=== PATIENT | female | born 1950 | race Caucasian/White ===

== ENCOUNTER 2020-06-05 13:43 | Emergency (ER) | payer OTHER, MEDICARE ==
[~2020-06-05] VITALS: Ht 162.6 cm; Wt 66.4 kg
[~2020-06-05 13:43] MED LIST: ASPI-612 PO; CALC-331 PO; CARV3.12 PO; CHOL100046 PO; ESTR0.6261 PO; FLAX100032 PO; GUAI120018 PO; LISI-640 PO; NIAC1TBM5 PO; VITE1000C PO
[2020-06-05 14:33] LABS: BASOPHILS # (AUTO) 0.1 X10'3 (0-0.2); BASOPHILS % (AUTO) 1.1 % (0-1); EOSINOPHILS # (AUTO) 0.3 X10'3 (0-0.9); EOSINOPHILS % (AUTO) 3.1 % (0-6); HEMATOCRIT 37.3 % (35.0-45.0); HEMOGLOBIN 12.6 g/dl (12.0-16.0); LYMPHOCYTES # (AUTO) 1.7 X10'3 (1.1-4.8); LYMPHOCYTES % (AUTO) 18.3 % (21-51); MEAN CORPUSCULAR HEMOGLOBIN 27.4 PG (27.0-31.0); MEAN CORPUSCULAR HGB CONC 33.9 g/dL (33.0-36.5); MEAN CORPUSCULAR VOLUME 80.9 FL (78-98); MEAN PLATELET VOLUME 8.1 FL (7.4-10.4); MONOCYTES # (AUTO) 0.8 X10'3 (0-0.9); MONOCYTES % (AUTO) 8.3 % (2-12); NEUTROPHILS # (AUTO) 6.3 X10'3 (1.8-7.7); NEUTROPHILS % (AUTO) 69.2 % (42-75); PLATELET COUNT 314 X10'3 (140-440); RED BLOOD COUNT 4.61 X10'6 (4.20-5.60); WHITE BLOOD COUNT 9.1 X10'3 (4.5-11.0)
[2020-06-05 14:48] LABS: ALANINE AMINOTRANSFERASE 35 U/L (12-78); ALBUMIN 4.3 G/DL (3.4-5.0); ALBUMIN/GLOBULIN RATIO 1.2 (1.1-1.5); ALKALINE PHOSPHATASE 102 IU/L (46-116); ANION GAP 10 (8-16); ASPARTATE AMINO TRANSFERASE 20 U/L (10-37); BILIRUBIN,TOTAL 0.5 MG/DL (0.1-1.0); BLOOD UREA NITROGEN 18 MG/DL (7-18); BUN/CREATININE RATIO 20.5 (6.6-38.0); CALCIUM 9.5 MG/DL (8.5-10.1); CHLORIDE 104 MMOL/L (99-107); CREATININE 0.88 MG/DL (0.40-0.90); GLUCOSE 100 MG/DL (70-104); POTASSIUM 3.5 MMOL/L (3.5-5.1); SODIUM 142 MMOL/L (135-145); TOTAL PROTEIN 7.9 G/DL (6.4-8.2); eGFR 64 ML/MIN
[2020-06-05 16:24] LABS: D-DIMER 0.39 MG/L FEU (0-0.50)
--- NOTE | 2020-06-05 17:00 | NUR ---
PROVIDER AWARE OF ELEVATED BP, NO MEDS ORDERED.
[2020-06-05 17:57] VITALS: BP 197/76
== END 2020-06-05 18:03 | disposition home or self-care (01) ==
LOC: ER 13:44
DX: R07.89 Other chest pain (principal); I51.81 Takotsubo syndrome; E78.00 Pure hypercholesterolemia, unspecified; I10 Essential (primary) hypertension; Z87.01 Personal history of pneumonia (recurrent); Z90.710 Acquired absence of both cervix and uterus; Z79.82 Long term (current) use of aspirin; Z79.899 Other long term (current) drug therapy
CPT/HCPCS: 36415; 71045; 80053; 84484; 85025; 85379; 93005; 99285

== ENCOUNTER 2021-02-28 16:22 | Emergency (ER) | payer OTHER, MEDICARE ==
[~2021-02-28] VITALS: Ht 160 cm; Wt 64.5 kg
[2021-02-28] MEDS ORDERED: metoprolol tartrate 50mg tablet PO ONE (17:05)
[2021-02-28 17:08] LABS: BASOPHILS # (AUTO) 0.1 X10'3 (0-0.2); EOSINOPHILS # (AUTO) 0.5 X10'3 (0-0.9); EOSINOPHILS % (AUTO) 4.5 % (0-6); HEMATOCRIT 38.7 % (35.0-45.0); HEMOGLOBIN 13.1 g/dl (12.0-16.0); LYMPHOCYTES # (AUTO) 2.6 X10'3 (1.1-4.8); MEAN CORPUSCULAR HGB CONC 33.9 g/dL (33.0-36.5); MEAN CORPUSCULAR VOLUME 82.6 FL (78-98); MEAN PLATELET VOLUME 7.7 FL (7.4-10.4); MONOCYTES % (AUTO) 10.2 % (2-12); NEUTROPHILS # (AUTO) 6.1 X10'3 (1.8-7.7); NEUTROPHILS % (AUTO) 59.3 % (42-75); PLATELET COUNT 283 X10'3 (140-440); RED BLOOD COUNT 4.68 X10'6 (4.20-5.60); RED CELL DISTRIBUTION WIDTH 14.1 % (11.5-14.5); WHITE BLOOD COUNT 10.2 X10'3 (4.5-11.0)
[2021-02-28 17:30] LABS: ALANINE AMINOTRANSFERASE 35 U/L (12-78); ALBUMIN 4.3 G/DL (3.4-5.0); ALBUMIN/GLOBULIN RATIO 1.2 (1.1-1.5); ALKALINE PHOSPHATASE 73 IU/L (46-116); ANION GAP 11 (8-16); ASPARTATE AMINO TRANSFERASE 19 U/L (10-37); BILIRUBIN,TOTAL 0.4 MG/DL (0.1-1.0); BLOOD UREA NITROGEN 25 MG/DL (7-18); BUN/CREATININE RATIO 31.3 (6.6-38.0); CALCIUM 9.4 MG/DL (8.5-10.1); CHLORIDE 106 MMOL/L (99-107); GLUCOSE 123 MG/DL (70-104); POTASSIUM 3.7 MMOL/L (3.5-5.1); SODIUM 145 MMOL/L (135-145); TOTAL CARBON DIOXIDE 28.2 MMOL/L (24-32); TOTAL PROTEIN 7.9 G/DL (6.4-8.2); eGFR 71 ML/MIN
[2021-02-28 17:39] LABS: MAGNESIUM 2.1 MG/DL (1.5-2.4)
[2021-02-28 18:00] LABS: D-DIMER 0.25 MG/L FEU (0-0.50)
[2021-02-28 19:51] VITALS: BP 173/67
== END 2021-02-28 19:54 | disposition home or self-care (01) ==
LOC: ER 16:23
DX: R07.89 Other chest pain (principal); Z20.822 Contact with and (suspected) exposure to COVID-19; M79.602 Pain in left arm; E78.00 Pure hypercholesterolemia, unspecified; I10 Essential (primary) hypertension; Z87.01 Personal history of pneumonia (recurrent); Z90.49 Acquired absence of other specified parts of digestive tract; Z90.710 Acquired absence of both cervix and uterus; Z79.82 Long term (current) use of aspirin; Z79.899 Other long term (current) drug therapy
CPT/HCPCS: 36415; 71045; 80053; 83735; 83880; 84484; 85025; 85379; 87635; 93005; 99285; C9803

== ENCOUNTER 2022-04-26 06:07 | Emergency (ER) | payer OTHER, MEDICARE ==
[~2022-04-26] VITALS: Ht 162.6 cm; Wt 60.0 kg
[2022-04-26 06:14] VITALS: BP 139/56
--- NOTE | 2022-04-26 09:20 | NUR ---
VASCULAR AT BEDSIDE
[2022-04-26 09:30] LABS: D-DIMER 0.51 MG/L FEU (0-0.50)
[2022-04-26 09:33] LABS: BASOPHILS # (AUTO) 0.1 X10'3 (0-0.2); BASOPHILS % (AUTO) 0.6 % (0-1); EOSINOPHILS # (AUTO) 0.9 X10'3 (0-0.9); EOSINOPHILS % (AUTO) 6.1 % (0-6); HEMATOCRIT 37.1 % (35.0-45.0); HEMOGLOBIN 12.5 g/dl (12.0-16.0); LYMPHOCYTES # (AUTO) 3.2 X10'3 (1.1-4.8); MEAN CORPUSCULAR HEMOGLOBIN 27.7 PG (27.0-31.0); MEAN CORPUSCULAR HGB CONC 33.8 g/dL (33.0-36.5); MEAN PLATELET VOLUME 7.4 FL (7.4-10.4); MONOCYTES # (AUTO) 1.4 X10'3 (0-0.9); MONOCYTES % (AUTO) 9.5 % (2-12); NEUTROPHILS # (AUTO) 8.9 X10'3 (1.8-7.7); NEUTROPHILS % (AUTO) 61.8 % (42-75); PLATELET COUNT 305 X10'3 (140-440); RED BLOOD COUNT 4.53 X10'6 (4.20-5.60); RED CELL DISTRIBUTION WIDTH 13.8 % (11.5-14.5); WHITE BLOOD COUNT 14.4 X10'3 (4.5-11.0)
[2022-04-26 09:41] LABS: ALANINE AMINOTRANSFERASE 23 U/L (12-78); ALBUMIN 3.9 G/DL (3.4-5.0); ALBUMIN/GLOBULIN RATIO 1.3 (1.1-1.5); ALKALINE PHOSPHATASE 61 IU/L (46-116); ASPARTATE AMINO TRANSFERASE 16 U/L (10-37); BILIRUBIN,TOTAL 0.5 MG/DL (0.1-1.0); BLOOD UREA NITROGEN 20 MG/DL (7-18); BUN/CREATININE RATIO 23.5 (6.6-38.0); CALCIUM 9.4 MG/DL (8.5-10.1); CHLORIDE 102 MMOL/L (99-107); CREATININE 0.85 MG/DL (0.40-0.90); GLUCOSE 111 MG/DL (70-104); POTASSIUM 3.3 MMOL/L (3.5-5.1); TOTAL CARBON DIOXIDE 27.4 MMOL/L (24-32); eGFR 66 ML/MIN
[2022-04-26 09:46] LABS: ANION GAP 11 (8-16); SODIUM 140 MMOL/L (135-145)
[2022-04-26] MEDS ORDERED: iohexol 350MG/ML 100ml bottle IV ONE (10:20)
--- NOTE | 2022-04-26 10:47 | NUR ---
PT RESTING COMFORTABLY. LIGHTS DIMMED AT PTS REQUEST
[2022-04-26] MEDS ORDERED: PRED10TA23 PO (12:06)
[2022-04-26] MEDS ORDERED: BUDE180A INH (12:06)
== END 2022-04-26 12:19 | disposition home or self-care (01) ==
LOC: ER 06:07
DX: R06.02 Shortness of breath (principal); L92.9 Granulomatous disorder of the skin and subcutaneous tissue, unspecified; J06.9 Acute upper respiratory infection, unspecified; E78.00 Pure hypercholesterolemia, unspecified; I10 Essential (primary) hypertension; Z90.49 Acquired absence of other specified parts of digestive tract; Z90.710 Acquired absence of both cervix and uterus
CPT/HCPCS: 36415; 71045; 71275; 80053; 83880; 84484; 85025; 85379; 93005; 93971; 99285; J3490; Q9967

== ENCOUNTER 2022-05-06 14:44 | Inpatient (IN) | payer OTHER, MEDICARE ==
[~2022-05-06] VITALS: Ht 160 cm; Wt 60.0 kg
[~2022-05-06 14:44] MED LIST changes: +BUDE180A INH; +PRED10TA23 PO
[2022-05-06 16:36] LABS: BASOPHILS # (AUTO) 0.1 X10'3 (0-0.2); BASOPHILS % (AUTO) 0.3 % (0-1); EOSINOPHILS # (AUTO) 0.2 X10'3 (0-0.9); EOSINOPHILS % (AUTO) 1.1 % (0-6); HEMATOCRIT 41.5 % (35.0-45.0); HEMOGLOBIN 13.5 g/dl (12.0-16.0); LYMPHOCYTES # (AUTO) 4.3 X10'3 (1.1-4.8); MEAN CORPUSCULAR HEMOGLOBIN 27.2 PG (27.0-31.0); MEAN CORPUSCULAR HGB CONC 32.6 g/dL (33.0-36.5); MEAN CORPUSCULAR VOLUME 83.2 FL (78-98); MEAN PLATELET VOLUME 7.8 FL (7.4-10.4); MONOCYTES # (AUTO) 1.8 X10'3 (0-0.9); MONOCYTES % (AUTO) 9.4 % (2-12); NEUTROPHILS % (AUTO) 67.2 % (42-75); PLATELET COUNT 396 X10'3 (140-440); RED BLOOD COUNT 4.98 X10'6 (4.20-5.60); RED CELL DISTRIBUTION WIDTH 14.5 % (11.5-14.5); WHITE BLOOD COUNT 19.4 X10'3 (4.5-11.0)
[2022-05-06 16:58] LABS: ALANINE AMINOTRANSFERASE 27 U/L (12-78); ALBUMIN 3.9 G/DL (3.4-5.0); ALBUMIN/GLOBULIN RATIO 1.4 (1.1-1.5); ALKALINE PHOSPHATASE 62 IU/L (46-116); ANION GAP 11 (8-16); ASPARTATE AMINO TRANSFERASE 21 U/L (10-37); BILIRUBIN,TOTAL 0.6 MG/DL (0.1-1.0); BLOOD UREA NITROGEN 41 MG/DL (7-18); BUN/CREATININE RATIO 34.5 (6.6-38.0); CALCIUM 9.7 MG/DL (8.5-10.1); CHLORIDE 98 MMOL/L (99-107); CREATININE 1.19 MG/DL (0.40-0.90); GLUCOSE 130 MG/DL (70-104); POTASSIUM 3.2 MMOL/L (3.5-5.1); SODIUM 135 MMOL/L (135-145); TOTAL CARBON DIOXIDE 26.5 MMOL/L (24-32); TOTAL PROTEIN 6.6 G/DL (6.4-8.2); eGFR 45 ML/MIN
--- NOTE | 2022-05-06 17:11 | NUR ---
Pt moved to ER rm 12 from fast track A.
[2022-05-06] MEDS ORDERED: aspirin 81mg tab.chew PO ONE (17:15)
[2022-05-06] MEDS ORDERED: heparin 10,000 units/1 ML INJ IV ONE ×2 (18:10→18:15)
[2022-05-06] MEDS ORDERED: potassium Cl 20 mEq SR tablet PO PRN (18:25)
[2022-05-06] MEDS ORDERED: potassium Cl 40MEQ/1/2NS 520ml 520 ML IV PRN (18:25)
[2022-05-06] MEDS ORDERED: magnesium 4gm in 100ml NS 100 ML IV PRN (18:25)
[2022-05-06] MEDS ORDERED: ondansetron/PF 4mg/2ml inj IV PRN (18:25)
[2022-05-06] MEDS ORDERED: acetaminophen 325mg tablet PO PRN (18:25)
[2022-05-06] MEDS ORDERED: magnesium Cl slow-release 64mg tablet PO PRN (18:25)
[2022-05-06] MEDS ORDERED: normal saline 1000ML IV soln IVB ONE (18:30)
[2022-05-06] MEDS: heparin 25,000 UNIT/250ml bag 250 ML IV PRN (19:20)
[2022-05-06] MEDS ORDERED: LORazepam 2 mg/ml vial IV ONE (19:35)
[2022-05-06] MEDS ORDERED: heparin 10,000 units/1 ML INJ IV PRN (19:35)
[2022-05-06] MEDS ORDERED: heparin, porcine 5000 units/ml vial SQ SCH (20:00)
[2022-05-06] MEDS: K and/or MAG REPLACEMENT MC SCH (20:00)
[2022-05-07 01:35] LABS: APTT 118 SECONDS (22-32)
--- NOTE | 2022-05-07 01:44 | NUR ---
0140 Dr MAYNARD notified PTT, heprin placed on hold for 2 hours and repeat PTT
[2022-05-07 04:07] LABS: BASOPHILS # (AUTO) 0.1 X10'3 (0-0.2); BASOPHILS % (AUTO) 0.5 % (0-1); EOSINOPHILS # (AUTO) 0.3 X10'3 (0-0.9); EOSINOPHILS % (AUTO) 2.4 % (0-6); HEMATOCRIT 38.2 % (35.0-45.0); HEMOGLOBIN 12.5 g/dl (12.0-16.0); LYMPHOCYTES # (AUTO) 5.1 X10'3 (1.1-4.8); LYMPHOCYTES % (AUTO) 35.7 % (21-51); MEAN CORPUSCULAR HEMOGLOBIN 27.1 PG (27.0-31.0); MEAN CORPUSCULAR HGB CONC 32.8 g/dL (33.0-36.5); MEAN CORPUSCULAR VOLUME 82.8 FL (78-98); MEAN PLATELET VOLUME 7.6 FL (7.4-10.4); MONOCYTES # (AUTO) 1.1 X10'3 (0-0.9); MONOCYTES % (AUTO) 7.6 % (2-12); NEUTROPHILS # (AUTO) 7.8 X10'3 (1.8-7.7); NEUTROPHILS % (AUTO) 53.8 % (42-75); PLATELET COUNT 297 X10'3 (140-440); RED BLOOD COUNT 4.62 X10'6 (4.20-5.60); RED CELL DISTRIBUTION WIDTH 14.6 % (11.5-14.5); WHITE BLOOD COUNT 14.4 X10'3 (4.5-11.0)
[2022-05-07 04:16] LABS: ALBUMIN 3.1 G/DL (3.4-5.0); ANION GAP 6 (8-16); BLOOD UREA NITROGEN 28 MG/DL (7-18); BUN/CREATININE RATIO 26.7 (6.6-38.0); CALCIUM 8.3 MG/DL (8.5-10.1); CHLORIDE 105 MMOL/L (99-107); CREATININE 1.05 MG/DL (0.40-0.90); GLUCOSE 90 MG/DL (70-104); MAGNESIUM 1.9 MG/DL (1.5-2.4); POTASSIUM 3.5 MMOL/L (3.5-5.1); SODIUM 137 MMOL/L (135-145); TOTAL CARBON DIOXIDE 25.9 MMOL/L (24-32); eGFR 52 ML/MIN
[2022-05-07 04:23] LABS: APTT 30 SECONDS (22-32)
[2022-05-07] MEDS ORDERED: iohexol 350MG/ML 100ml bottle IV ONE (06:32)
[2022-05-07] MEDS: K and/or MAG REPLACEMENT MC SCH ×2 (08:00→20:00)
[2022-05-07] MEDS: furosemide 20 MG/2 ML vial IV SCH ×2 (08:31→21:07)
[2022-05-07 08:38] LABS: APTT 29 SECONDS (22-32)
[2022-05-07 16:16] LABS: APTT 49 SECONDS (22-32)
--- NOTE | 2022-05-07 16:37 | NUR ---
q2h repsoitioning by nursing staff. pt easily redirectable this shift. pt remains incontinent of bowel and bladder. skin/hygiene care performed. bed alarm remains on and audible. will continue to monitor pt Addendum: 05/07/22 at 1639 by Mandi Babin RN incorrect pt please disregard
[2022-05-07 18:01] VITALS: BP 108/68
[2022-05-07] MEDS ORDERED: AMLO5TAB16 PO (18:34)
[2022-05-07] MEDS ORDERED: ASPI-612 PO (18:35)
[2022-05-07] MEDS ORDERED: RED YEAST RICE/COQ10 PO (18:36)
[2022-05-07] MEDS ORDERED: Melatonin 3mg tablet PO SCH (21:00)
[2022-05-07 22:00] VITALS: BP 106/58
[2022-05-08] VITALS (8 sets, daily range): BP systolic 70–146; BP diastolic 41–76
[2022-05-08] MEDS: heparin 25,000 UNIT/250ml bag 250 ML IV PRN (02:12)
[2022-05-08 07:22] LABS: BASOPHILS # (AUTO) 0.1 X10'3 (0-0.2); BASOPHILS % (AUTO) 0.4 % (0-1); EOSINOPHILS # (AUTO) 0.4 X10'3 (0-0.9); EOSINOPHILS % (AUTO) 3.6 % (0-6); HEMATOCRIT 37.3 % (35.0-45.0); HEMOGLOBIN 12.3 g/dl (12.0-16.0); LYMPHOCYTES # (AUTO) 3.9 X10'3 (1.1-4.8); LYMPHOCYTES % (AUTO) 31.7 % (21-51); MEAN CORPUSCULAR HEMOGLOBIN 27.3 PG (27.0-31.0); MEAN CORPUSCULAR VOLUME 82.8 FL (78-98); MEAN PLATELET VOLUME 7.8 FL (7.4-10.4); MONOCYTES # (AUTO) 1.1 X10'3 (0-0.9); MONOCYTES % (AUTO) 9.2 % (2-12); NEUTROPHILS # (AUTO) 6.8 X10'3 (1.8-7.7); NEUTROPHILS % (AUTO) 55.1 % (42-75); PLATELET COUNT 251 X10'3 (140-440); RED BLOOD COUNT 4.51 X10'6 (4.20-5.60); RED CELL DISTRIBUTION WIDTH 14.4 % (11.5-14.5); WHITE BLOOD COUNT 12.3 X10'3 (4.5-11.0)
[2022-05-08 07:53] LABS: ALBUMIN 3.3 G/DL (3.4-5.0); ANION GAP 8 (8-16); BLOOD UREA NITROGEN 23 MG/DL (7-18); BUN/CREATININE RATIO 21.7 (6.6-38.0); CALCIUM 8.3 MG/DL (8.5-10.1); CHLORIDE 100 MMOL/L (99-107); CREATININE 1.06 MG/DL (0.40-0.90); GLUCOSE 114 MG/DL (70-104); MAGNESIUM 1.8 MG/DL (1.5-2.4); SODIUM 135 MMOL/L (135-145); TOTAL CARBON DIOXIDE 26.7 MMOL/L (24-32); eGFR 51 ML/MIN
[2022-05-08 07:56] LABS: POTASSIUM 2.9 MMOL/L (3.5-5.1)
[2022-05-08] MEDS: K and/or MAG REPLACEMENT MC SCH ×2 (08:00→18:36)
[2022-05-08] MEDS: furosemide 20 MG/2 ML vial IV SCH (10:03)
[2022-05-08] MEDS: potassium Cl 20 mEq SR tablet PO PRN ×2 (10:10→16:48)
[2022-05-08] MEDS: metoprolol succinate 25mg (24-HOUR) SR. Tablet PO SCH (11:25)
--- NOTE | 2022-05-08 18:30 | NUR ---
Received report from Henry PRIDE.
[2022-05-08] MEDS ORDERED: Melatonin 3mg tablet PO PRN (21:00)
[2022-05-08] MEDS: temazepam 15mg capsule PO PRN (22:29)
[2022-05-09] VITALS (10 sets, daily range): BP systolic 77–152; BP diastolic 41–57
--- NOTE | 2022-05-09 06:40 | NUR ---
Report to Henry PRIDE.
[2022-05-09 06:56] LABS: BASOPHILS # (AUTO) 0.1 X10'3 (0-0.2); BASOPHILS % (AUTO) 0.7 % (0-1); EOSINOPHILS # (AUTO) 0.6 X10'3 (0-0.9); HEMATOCRIT 37.2 % (35.0-45.0); HEMOGLOBIN 12.3 g/dl (12.0-16.0); LYMPHOCYTES # (AUTO) 3.3 X10'3 (1.1-4.8); LYMPHOCYTES % (AUTO) 28.7 % (21-51); MEAN CORPUSCULAR HEMOGLOBIN 27.5 PG (27.0-31.0); MEAN CORPUSCULAR VOLUME 83.5 FL (78-98); MEAN PLATELET VOLUME 7.7 FL (7.4-10.4); MONOCYTES # (AUTO) 1.1 X10'3 (0-0.9); MONOCYTES % (AUTO) 9.2 % (2-12); NEUTROPHILS # (AUTO) 6.6 X10'3 (1.8-7.7); NEUTROPHILS % (AUTO) 56.4 % (42-75); PLATELET COUNT 274 X10'3 (140-440); RED BLOOD COUNT 4.46 X10'6 (4.20-5.60); RED CELL DISTRIBUTION WIDTH 14.7 % (11.5-14.5); WHITE BLOOD COUNT 11.6 X10'3 (4.5-11.0)
[2022-05-09 07:04] LABS: ALBUMIN 3.4 G/DL (3.4-5.0); ANION GAP 5 (8-16); BLOOD UREA NITROGEN 23 MG/DL (7-18); CALCIUM 8.9 MG/DL (8.5-10.1); CHLORIDE 98 MMOL/L (99-107); CREATININE 1.15 MG/DL (0.40-0.90); GLUCOSE 135 MG/DL (70-104); MAGNESIUM 1.7 MG/DL (1.5-2.4); POTASSIUM 3.5 MMOL/L (3.5-5.1); SODIUM 133 MMOL/L (135-145); TOTAL CARBON DIOXIDE 29.7 MMOL/L (24-32); eGFR 47 ML/MIN
[2022-05-09] MEDS: K and/or MAG REPLACEMENT MC SCH ×2 (08:00→19:20)
[2022-05-09] MEDS: metoprolol succinate 25mg (24-HOUR) SR. Tablet PO SCH ×2 (08:00→09:30)
[2022-05-09] MEDS: normal saline 1000ml 1,000 ML IV SCH ×2 (10:24→20:24)
[2022-05-09] MEDS: temazepam 15mg capsule PO PRN (22:12)
[2022-05-10] VITALS (10 sets, daily range): BP systolic 128–176; BP diastolic 41–57
[2022-05-10] MEDS: normal saline 1000ml 1,000 ML IV SCH ×3 (05:16→20:34)
[2022-05-10 06:36] LABS: BASOPHILS # (AUTO) 0.1 X10'3 (0-0.2); BASOPHILS % (AUTO) 0.6 % (0-1); EOSINOPHILS # (AUTO) 0.7 X10'3 (0-0.9); EOSINOPHILS % (AUTO) 5.5 % (0-6); HEMATOCRIT 36.8 % (35.0-45.0); HEMOGLOBIN 12.2 g/dl (12.0-16.0); LYMPHOCYTES # (AUTO) 3.1 X10'3 (1.1-4.8); LYMPHOCYTES % (AUTO) 25.6 % (21-51); MEAN CORPUSCULAR HEMOGLOBIN 27.6 PG (27.0-31.0); MEAN CORPUSCULAR VOLUME 83.7 FL (78-98); MEAN PLATELET VOLUME 7.8 FL (7.4-10.4); MONOCYTES # (AUTO) 1.1 X10'3 (0-0.9); MONOCYTES % (AUTO) 9.2 % (2-12); NEUTROPHILS # (AUTO) 7.1 X10'3 (1.8-7.7); NEUTROPHILS % (AUTO) 59.1 % (42-75); PLATELET COUNT 245 X10'3 (140-440); RED CELL DISTRIBUTION WIDTH 14.6 % (11.5-14.5); WHITE BLOOD COUNT 12.1 X10'3 (4.5-11.0)
[2022-05-10 06:40] LABS: ALBUMIN 3.4 G/DL (3.4-5.0); ANION GAP 6 (8-16); BLOOD UREA NITROGEN 20 MG/DL (7-18); BUN/CREATININE RATIO 24.1 (6.6-38.0); CALCIUM 8.6 MG/DL (8.5-10.1); CHLORIDE 103 MMOL/L (99-107); CREATININE 0.83 MG/DL (0.40-0.90); GLUCOSE 101 MG/DL (70-104); POTASSIUM 3.8 MMOL/L (3.5-5.1); SODIUM 137 MMOL/L (135-145); TOTAL CARBON DIOXIDE 27.6 MMOL/L (24-32); eGFR 68 ML/MIN
[2022-05-10] MEDS: K and/or MAG REPLACEMENT MC SCH ×2 (08:00→19:08)
[2022-05-10] MEDS: metoprolol succinate 25mg (24-HOUR) SR. Tablet PO SCH (08:58)
[2022-05-10] MEDS: temazepam 15mg capsule PO PRN (22:21)
[2022-05-11 02:43] VITALS: BP 140/63
[2022-05-11] MEDS: normal saline 1000ml 1,000 ML IV SCH ×3 (03:16→16:51)
[2022-05-11 06:12] LABS: ALBUMIN 3.1 G/DL (3.4-5.0); ANION GAP 6 (8-16); BLOOD UREA NITROGEN 10 MG/DL (7-18); BUN/CREATININE RATIO 14.3 (6.6-38.0); CALCIUM 8.3 MG/DL (8.5-10.1); CHLORIDE 108 MMOL/L (99-107); GLUCOSE 95 MG/DL (70-104); POTASSIUM 3.9 MMOL/L (3.5-5.1); SODIUM 139 MMOL/L (135-145); eGFR 82 ML/MIN
[2022-05-11 06:19] LABS: BASOPHILS # (AUTO) 0.1 X10'3 (0-0.2); BASOPHILS % (AUTO) 0.7 % (0-1); EOSINOPHILS # (AUTO) 0.6 X10'3 (0-0.9); EOSINOPHILS % (AUTO) 4.9 % (0-6); HEMATOCRIT 31.8 % (35.0-45.0); HEMOGLOBIN 10.3 g/dl (12.0-16.0); LYMPHOCYTES # (AUTO) 2.3 X10'3 (1.1-4.8); LYMPHOCYTES % (AUTO) 19.4 % (21-51); MEAN CORPUSCULAR HEMOGLOBIN 27.3 PG (27.0-31.0); MEAN CORPUSCULAR HGB CONC 32.5 g/dL (33.0-36.5); MEAN CORPUSCULAR VOLUME 84.1 FL (78-98); MEAN PLATELET VOLUME 7.8 FL (7.4-10.4); MONOCYTES # (AUTO) 0.8 X10'3 (0-0.9); MONOCYTES % (AUTO) 6.9 % (2-12); NEUTROPHILS % (AUTO) 68.1 % (42-75); PLATELET COUNT 185 X10'3 (140-440); RED BLOOD COUNT 3.79 X10'6 (4.20-5.60); RED CELL DISTRIBUTION WIDTH 14.9 % (11.5-14.5); WHITE BLOOD COUNT 11.8 X10'3 (4.5-11.0)
[2022-05-11 07:00] VITALS: BP 164/51
[2022-05-11 08:00] VITALS: BP 164/51
[2022-05-11] MEDS: K and/or MAG REPLACEMENT MC SCH (08:00)
[2022-05-11 08:02] VITALS: BP 169/56
[2022-05-11] MEDS: metoprolol succinate 25mg (24-HOUR) SR. Tablet PO SCH (09:12)
--- NOTE | 2022-05-11 10:04 | NUR ---
Initial: Pt admit DX type II NV, hypokalemia, and orthostatic hypotension per EMR. PO ~100% mostly heart healthy diet meeting needs. LBM 05/09 per EMR. No nutrition interventions at this time. Will continue to monitor. Rec: 1. continue heart healthy diet; liberalize to regular if PO regresses 2. routine bowel care 3. weekly wts Addendum: 05/11/22 at [address] Amended: Links added.
[2022-05-11] MEDS ORDERED: METO-395 PO (16:13)
--- NOTE | 2022-05-11 17:57 | NUR ---
"DR. AYALA, ARE YOU PLANING TO DISCHARGE PT KALYN, ROOM 3023 A, TODAY? THANK YOU AMARILYS, PCU"
[2022-05-11 18:00] VITALS: BP 148/73
--- NOTE | 2022-05-11 19:33 | NUR ---
wheeled patient to private vehicle with all belongings. son driving home. pt to get RX tonight on her way home.
== END 2022-05-11 19:33 | disposition home or self-care (01) | DRG 280 ==
LOC: ER 14:45 → ED HOLD 18:27 → EDBEDREQ 05-07 04:47 → PCU 3S 05-07 17:49
PROVIDERS: ADMIT Internal Medicine; ATTEND Internal Medicine
PROC: B32T1ZZ Computerized Tomography (CT Scan) of Left Pulmonary Artery using Low Osmolar Contrast (ICD-10-PCS; principal; 2022-05-07)
PROC: B3201ZZ Computerized Tomography (CT Scan) of Thoracic Aorta using Low Osmolar Contrast (ICD-10-PCS; 2022-05-07)
PROC: B32S1ZZ Computerized Tomography (CT Scan) of Right Pulmonary Artery using Low Osmolar Contrast (ICD-10-PCS; 2022-05-07)
DX: I11.0 Hypertensive heart disease with heart failure (principal); I21.A1 Myocardial infarction type 2; I50.33 Acute on chronic diastolic (congestive) heart failure; E87.6 Hypokalemia; D72.829 Elevated white blood cell count, unspecified; I42.2 Other hypertrophic cardiomyopathy; I95.1 Orthostatic hypotension; F41.9 Anxiety disorder, unspecified; E78.00 Pure hypercholesterolemia, unspecified; F42.9 Obsessive-compulsive disorder, unspecified; F90.9 Attention-deficit hyperactivity disorder, unspecified type; I34.1 Nonrheumatic mitral (valve) prolapse; Z90.710 Acquired absence of both cervix and uterus; Z98.82 Breast implant status; Z79.899 Other long term (current) drug therapy; Z79.82 Long term (current) use of aspirin
CPT/HCPCS: 36415; 71045; 71275; 80048; 80053; 83735; 83880; 84145; 84443; 84484; 85025; 85730; 86140; 87081; 93005; 93308; 99285; G0378; J1644; J1940; J2060; J3490; J7030; Q9967

== ENCOUNTER 2022-05-14 00:41 | Emergency (ER) | payer OTHER, MEDICARE ==
[~2022-05-14] VITALS: Ht 160 cm; Wt 61.3 kg
[~2022-05-14 00:41] MED LIST changes: -BUDE180A INH; -CALC-331 PO; -CARV3.12 PO; -CHOL100046 PO; -ESTR0.6261 PO; -FLAX100032 PO; -GUAI120018 PO; -LISI-640 PO; +METO-395 PO; -NIAC1TBM5 PO; -PRED10TA23 PO; +RED YEAST RICE/COQ10 PO; -VITE1000C PO
[2022-05-14] MEDS ORDERED: normal saline 1000ML IV soln IVB ONE (01:25)
[2022-05-14 01:28] LABS: BASOPHILS # (AUTO) 0.1 X10'3 (0-0.2); BASOPHILS % (AUTO) 0.8 % (0-1); EOSINOPHILS # (AUTO) 0.6 X10'3 (0-0.9); EOSINOPHILS % (AUTO) 6.8 % (0-6); HEMATOCRIT 30.3 % (35.0-45.0); HEMOGLOBIN 10.4 g/dl (12.0-16.0); LYMPHOCYTES # (AUTO) 2.3 X10'3 (1.1-4.8); MEAN CORPUSCULAR HEMOGLOBIN 28.3 PG (27.0-31.0); MEAN CORPUSCULAR HGB CONC 34.2 g/dL (33.0-36.5); MEAN CORPUSCULAR VOLUME 82.9 FL (78-98); MEAN PLATELET VOLUME 8.3 FL (7.4-10.4); MONOCYTES # (AUTO) 0.9 X10'3 (0-0.9); MONOCYTES % (AUTO) 10.6 % (2-12); NEUTROPHILS % (AUTO) 55.8 % (42-75); PLATELET COUNT 188 X10'3 (140-440); RED BLOOD COUNT 3.65 X10'6 (4.20-5.60); RED CELL DISTRIBUTION WIDTH 15.1 % (11.5-14.5); WHITE BLOOD COUNT 8.9 X10'3 (4.5-11.0)
[2022-05-14 01:45] VITALS: BP 154/71
[2022-05-14 01:45] LABS: ALANINE AMINOTRANSFERASE 85 U/L (12-78); ALBUMIN 3.4 G/DL (3.4-5.0); ALBUMIN/GLOBULIN RATIO 1.2 (1.1-1.5); ALKALINE PHOSPHATASE 65 IU/L (46-116); ANION GAP 10 (8-16); ASPARTATE AMINO TRANSFERASE 49 U/L (10-37); BILIRUBIN,TOTAL 0.4 MG/DL (0.1-1.0); BLOOD UREA NITROGEN 20 MG/DL (7-18); BUN/CREATININE RATIO 22.2 (6.6-38.0); CALCIUM 8.8 MG/DL (8.5-10.1); CHLORIDE 105 MMOL/L (99-107); GLUCOSE 134 MG/DL (70-104); POTASSIUM 3.4 MMOL/L (3.5-5.1); SODIUM 139 MMOL/L (135-145); TOTAL CARBON DIOXIDE 23.9 MMOL/L (24-32); TOTAL PROTEIN 6.3 G/DL (6.4-8.2); eGFR 62 ML/MIN
== END 2022-05-14 02:30 | disposition home or self-care (01) ==
LOC: ER 00:43
DX: R06.00 Dyspnea, unspecified (principal); E86.0 Dehydration; E78.00 Pure hypercholesterolemia, unspecified; I10 Essential (primary) hypertension; Z90.49 Acquired absence of other specified parts of digestive tract; Z90.710 Acquired absence of both cervix and uterus
CPT/HCPCS: 36415; 71045; 80053; 83735; 83880; 84484; 85025; 93005; 99285; J7030; 99284

== ENCOUNTER 2024-10-14 03:59 | Emergency (ER) | payer OTHER, MEDICARE ==
[~2024-10-14] VITALS: Ht 160 cm; Wt 67.4 kg
--- NOTE | 2024-10-14 04:13 | Physician Documentation ---
History of Present Illness ~ Stated Complaint: CHEST PAIN Time Seen by MD: 04:08 Primary Medical Doctor: [facility], Dr. pierre HPI Patient presents to the emergency room with an unusual feeling in the right side of her chest described as a pressure-like feeling. This has been going on over the past month when she wakes up in the middle of the night. She also endorses dry tongue and mouth when this occurs. Symptoms resolved by morning. Tonight she took her blood pressure during the dry mouth right-sided chest discomfort episode and saw that it was 190 systolic and given overall symptoms she wanted to be checked out. Patient does have a hair cutter, Dr. Johnston. History of takotsubo Medication Reconciliation Allergies: Coded Allergies: No Known Allergies (Unverified , 05/14/22) Scheduled Aspirin (Aspir 81), 1 TAB PO DAILY, (Reported) Metoprolol Succinate (Metoprolol Succinate), 50 MG PO DAILY [Red Yeast Rice/Coq10], 1 TAB PO DAILY, (Reported) Past Medical History Past Medical History: *CARDIOVASCULAR*, High Cholesterol, Hypertension, Pneumonia, *PSYCH*, Anxiety Past Surgical History: cholecystectomy, hysterectomy Alcohol Use: None Drug Use: none Lives with: Spouse Lives In: Home Occupation: employed Review of Systems ROS All review of systems negative except as per HPI Physical Exam Physical Exam General: Patient is awake, alert, oriented x4 in no acute distress and well appearing.~ Head: Normocephalic and atraumatic. Eyes: Conjunctival normal. EOMI. PERRL. ENT: Mucous membranes moist. Neck: Supple, trachea is midline. Chest: Clear to auscultation bilaterally without rales, rhonchi, or wheezes. There is no accessory muscle use or retractions. Cardiac: RRR without murmurs, gallops, or rubs. Abd: Soft, nondistended, nontender, with normoactive bowel sounds. No guarding, rebound, or rigidity. Extremities: Normal strength. Normal range of motion. No deformities or edema. No calf tenderness to palpation Progress Results/Orders Results/Orders Orders - SIMBA OLVERA MD Chest,Single View (10/14/24 04:30) Saline Lock (10/14/24 04:24) Monitor (10/14/24 04:24) Oxygen (10/14/24 04:24) Hs Troponin I W Calculations (10/14/24 07:24) Completed Orders - SIMBA OLVERA MD Cbc/Diff (10/14/24 04:24) MG (10/14/24 04:24) Electrocardiogram (10/14/24 04:24) Chest,Single View (10/14/24 04:30) BMP (10/14/24 04:24) Hs Troponin I W Calculations (10/14/24 04:24) Hs Troponin I W Calculations (10/14/24 06:24) Potassium Cl Sr Tablet (K-Dur Tablet) (10/14/24 05:48) Vital Signs 10/14/24 10/14/24 10/14/24 10/14/24 04:07 04:54 06:13 06:27 Temp 97.6 97.6 Pulse 66 65 57 Resp 14 14 18 B/P (MAP) 206/73 184/69 (107) 183/63 (103) Pulse Ox 100 99 98 O2 Flow Rate 0 0 0 10/14/24 10/14/24 06:27 08:25 Pulse 65 Resp 18 18 B/P (MAP) 143/60 (87) Pulse Ox 99 O2 Flow Rate 0 Laboratory Tests Test 10/14/24 04:35 10/14/24 07:06 White Blood Count 9.4 Red Blood Count 4.58 Hemoglobin 12.6 Hematocrit 37.6 Mean Corpuscular Volume 82.2 Mean Corpuscular Hemoglobin 27.5 Mean Corpuscular Hemoglobin Concent 33.5 Red Cell Distribution Width 14.3 Platelet Count 277 Mean Platelet Volume 7.7 Neutrophils (%) (Auto) 61.0 Lymphocytes (%) (Auto) 26.6 Monocytes (%) (Auto) 8.7 Eosinophils (%) (Auto) 2.9 Basophils (%) (Auto) 0.8 Neutrophils # (Auto) 5.7 Lymphocytes # (Auto) 2.5 Monocytes # (Auto) 0.8 Eosinophils # (Auto) 0.3 Basophils # (Auto) 0.1 CBC Comment Sodium Level 140 Potassium Level 3.4 L Chloride Level 102 Carbon Dioxide Level 27.4 Anion Gap 11 Blood Urea Nitrogen 20 H Creatinine 0.95 H Estimated GFR/1.73 m2 58 BUN/Creatinine Ratio 21.1 H Glucose Level 104 Calcium Level 9.2 Magnesium Level 2.0 Troponin I High Sensitivity 32 28 Albumin 3.9 Chemistry Comments Troponin I High Sens Percent Delta 12 Troponin I Hi Sens Absolute Change -4 Medical Decision Making Findings Patient presented to the emergency room with vague right-sided chest pain and tongue dryness upon wakening in the middle of the night as well as elevated blood pressures. Differentials include but are not limited to hypertensive emergency, ACS, pulmonary embolism, pneumothorax, pneumonia therefore emergent labs and imaging indicated. Chest x-ray is reassuring. Symptoms are inconsistent with pulmonary embolism given the waxing and waning symptoms. Patient's blood pressure is improving. She is not suffering from hypertensive emergency. The need to follow up with her hair cutter discussed. Heart score of three Departure Disposition: HOME / SELF CARE / HOMELESS Impression: Primary Impression: Chest pain Additional Impression: Uncontrolled hypertension Condition: Stable Discharge Instructions: Chest Wall Pain, Hypertension, Adult, [id number] Referrals: NO PRIMARY CARE PROVIDER (PCP) Signature Scribe Signature: No scribe Attestation: The note accurately reflects work and decisions made by me.Simba Olvera MD 10/14/24 06:03 SIMBA OLVERA MD Oct 14, 2024 04:13
[2024-10-14 04:44] LABS: BASOPHILS # (AUTO) 0.1 X10'3 (0-0.2); BASOPHILS % (AUTO) 0.8 % (0-1); EOSINOPHILS # (AUTO) 0.3 X10'3 (0-0.9); EOSINOPHILS % (AUTO) 2.9 % (0-6); HEMATOCRIT 37.6 % (35.0-45.0); HEMOGLOBIN 12.6 g/dl (12.0-16.0); LYMPHOCYTES # (AUTO) 2.5 X10'3 (1.1-4.8); LYMPHOCYTES % (AUTO) 26.6 % (21-51); MEAN CORPUSCULAR HEMOGLOBIN 27.5 PG (27.0-31.0); MEAN CORPUSCULAR HGB CONC 33.5 g/dL (33.0-36.5); MEAN CORPUSCULAR VOLUME 82.2 FL (78-98); MEAN PLATELET VOLUME 7.7 FL (7.4-10.4); MONOCYTES # (AUTO) 0.8 X10'3 (0-0.9); MONOCYTES % (AUTO) 8.7 % (2-12); NEUTROPHILS # (AUTO) 5.7 X10'3 (1.8-7.7); PLATELET COUNT 277 X10'3 (140-440); RED BLOOD COUNT 4.58 X10'6 (4.20-5.60); RED CELL DISTRIBUTION WIDTH 14.3 % (11.5-14.5); WHITE BLOOD COUNT 9.4 X10'3 (4.5-11.0)
[2024-10-14 04:56] LABS: ALBUMIN 3.9 G/DL (3.4-5.0); ANION GAP 11 (8-16); BLOOD UREA NITROGEN 20 MG/DL (7-18); BUN/CREATININE RATIO 21.1 (10.0-20.0); CALCIUM 9.2 MG/DL (8.5-10.1); CHLORIDE 102 MMOL/L (99-107); CREATININE 0.95 MG/DL (0.40-0.90); GLUCOSE 104 MG/DL (70-104); POTASSIUM 3.4 MMOL/L (3.5-5.1); SODIUM 140 MMOL/L (135-145); TOTAL CARBON DIOXIDE 27.4 MMOL/L (24-32); eCRCL 44 ML/MIN; eGFR 58 ML/MIN
--- NOTE | 2024-10-14 05:01 | RADIOLOGY REPORT ---
CHEST RADIOGRAPH Indication: CP Technique: Single frontal view of the chest was obtained COMPARISON: CHEST,SINGLE VIEW on DOS: 05/06/22 FINDINGS: Lines and Tubes: None Lungs: Clear Pleura: No effusion. No pneumothorax. Cardiomediastinal contours: Unremarkable Bones: Unremarkable IMPRESSION: No acute disease.
--- NOTE | 2024-10-14 05:15 | ELECTROCARDIOGRAPH REPORT ---
[facility] Test Date: 2024-10-14 Test Time: 04:08:09 Pat Name: MARVIN MCCAIN Department: EMERGENCY ROOM Room: Gender: F Security Checker: MAREN : 1950 Requested By: ADI OLVERA Order Number: [id number] Reading MD: Measurements Intervals [place] Rate: 65 P: 50 GA: 180 QRS: -12 QRSD: 95 T: 52 QT: 398 QTc: 414 Interpretive Statements Sinus rhythm Anterior infarct, old Please click the below link to view image of tracing.
[2024-10-14] MEDS: potassium Cl 20 mEq SR tablet PO STA (06:11)
[2024-10-14 06:13] VITALS: TEMP 97.6
[2024-10-14 08:25] VITALS: BP 143/60; PULSE 65; RESP 18; O2SAT 99
== END 2024-10-14 08:36 | disposition home or self-care (01) ==
LOC: ER 03:59
DX: R07.9 Chest pain, unspecified (principal); I10 Essential (primary) hypertension; E78.00 Pure hypercholesterolemia, unspecified; F41.9 Anxiety disorder, unspecified; Z90.49 Acquired absence of other specified parts of digestive tract; Z90.710 Acquired absence of both cervix and uterus; Z79.82 Long term (current) use of aspirin
CPT/HCPCS: 36415; 71045; 80048; 83735; 84484; 85025; 93005; 99285

== ENCOUNTER 2024-10-28 07:17 | Emergency (ER) | payer OTHER, MEDICARE ==
[~2024-10-28] VITALS: Ht 160 cm; Wt 67.0 kg
[2024-10-28 07:19] VITALS: BP 174/66; PULSE 71; TEMP 97.8; O2SAT 100
--- NOTE | 2024-10-28 07:29 | Physician Documentation ---
History of Present Illness ~ Chief Complaint: Foot pain Stated Complaint: FOOT PAIN Time Seen by MD: 07:27 Primary Medical Doctor: DR. DUARTE HPI This is a very pleasant 73-year-old female with a recent history of foot fracture, followed by Dr. Reyna of [facility], presents for evaluation of three days of right foot pain after she accidentally misstepped slammed her foot into the ground. Worse with any ambulation, has difficulty bearing weight, Tylenol is not helping. Feels similar to prior fracture of the foot. Denies any other injury. No concern for tobacco, alcohol or illicit substances use Tetanus witin 5 years: No Medication Reconciliation Allergies: Coded Allergies: No Known Allergies (Unverified , 10/28/24) Scheduled Aspirin (Aspir 81), 1 TAB PO DAILY, (Reported) Metoprolol Succinate (Metoprolol Succinate), 50 MG PO DAILY [Red Yeast Rice/Coq10], 1 TAB PO DAILY, (Reported) Past Medical History Past Medical History: *CARDIOVASCULAR*, High Cholesterol, Hypertension, Pneumonia, *PSYCH*, Anxiety Past Surgical History: cholecystectomy, hysterectomy Alcohol Use: None Drug Use: none Lives with: Spouse Lives In: Home Occupation: employed Review of Systems ROS 10 point review of systems was performed and unless noted above in HPI is negative for acute process/complaint. Physical Exam Vital Signs: Temperature: 97.8, Source: Temporal, Heart Rate: 71, Respiratory Rate: 16, BP: 174/66, Pulse Oximetry: 100, Weight: 67.050 Physical Exam Physical examination: GENERAL: Awake, alert, oriented, GCS 15, no apparent distress, non-toxic appearing, answers questions, follows commands appropriately. HEENT: Atraumatic, normocephalic, pupils equal, extraocular muscles intact Active gross movements, sclerae anicteric, mucus membranes moist, no stridor. NECK: Midline, no JVD CARDIOVASCULAR: Good skin perfusion without evidence of pallor, mottling. PULMONARY: Nonlabored, symmetric chest rise, no audible wheezing, no accessory muscle use, no respiratory distress, speaking in full sentences. GASTROINTESTINAL: Not distended. NEUROLOGIC: Lucid with normal mental status. Normal facial symmetry. Moves all extremities symmetrically and with purpose. No truncal ataxia. Speech is fluid without evidence of dysarthria or aphasia, no focal deficits appreciated. EXTREMITIES: Acute deformities Skin: warm, dry PSYCHIATRIC: Normal affect, normal insight, normal concentration. Focused exam: [] Progress Results/Orders Results/Orders Orders - EMILY LUTHER DO Foot, Complete (3vw Min) (10/28/24 07:25) Completed Orders - EMILY LUTHER DO Foot, Complete (3vw Min) (10/28/24 07:25) Hydrocodone/Apap 5/325mg Tab ([place] 5/32 (10/28/24 07:30) Medications Received in ER Medications (Trade) Dose Ordered Sig/Giovana Route PRN Reason Start Time Stop Time Status Last Admin Dose Admin ([place] 5/325mg tablet) 1 tab ONCE ONCE PO 10/28/24 07:30 10/28/24 07:31 DC 10/28/24 07:53 1 TAB Vital Signs 10/28/24 10/28/24 07:19 07:53 Temp 97.8 Pulse 71 Resp 16 16 B/P (MAP) 174/66 Pulse Ox 100 Medical Decision Making Findings Facility Status: ED Holds, [facility] process The plan was discussed with the patient, who demonstrates clear understanding of the plan and is in agreement with the plan unless otherwise noted in the chart. All questions have been answered, all concerns were addressed unless otherwise documented. I was available throughout their ED stay for frequent reassessment and questions. Differential Diagnoses (considered and possible or likely): [Foot contusion, foot fracture, foot dislocation, ankle fracture] ??Differential Diagnoses (considered and unlikely, not requiring evaluation currently): No evidence of neurovascular injury] MDM Data Please see [facility] for the following: Independent Historians and external Records Review. Historian: [Patient] Independent Historians: ?[Record review] Medication Management: [Reviewed medication list] Social History and determinants: [Reviewed] Please see the body of the note for the following: Any independent interpretations of ECG, imaging studies. All vitals signs/haemodynamics, ordered tests were independently reviewed and interpreted by myself. Nursing triage complaint and vitals reviewed, additional nursing notes were reviewed as available and I agree unless otherwise noted or documented in contradiction in the chart Vital Signs: Independently reviewed Labs: Independently interpreted Imaging: Independently interpreted Old Medical Records: Independently reviewed, see [facility] for relevant summary and information Pulse Oximetry: [100%] interpreted as [normal on room air] by me Additionally notably showing: [Hemodynamically stable. X-ray shows no fracture.] Tests considered but not ordered include: [Hematologic workup has been considered but does not appear to be necessary given mechanical nature of the injury.] Social Determinants of Health Impact: Patient was evaluated in [facility], or [facility] [place] access to healthcare due to below par ratio of patient to medical providers. [] Comorbid Conditions Impacting Present Evaluation and Care/Treatment: [History of foot fracture] Management Discussions with other Healthcare Providers: [None] Treatment and Disposition Medication Management (Given or considered): [Pain management]. See EMR for details Consideration for Hospitalization/Escalation/Deescalation of Care: Admission for observation has been considered, [however the patient is able to tolerate p.o., their symptoms are controlled, they are able to rely on oral medications, and their chief complaint/diagnosis can be managed on outpatient basis.] ?ED Course:?[No clinical deterioration. Can follow-up outpatient with the Orthopedic surgery. May need MRI] ?Shared decision making:?[Patient is hemodynamically stable for discharge home with follow with their primary care provider. [ ] Specific and cautious return precautions provided and discussed with full understanding. Any incidental findings were also discussed and follow up recommendations given. [] All questions answered. Patient/family were able to verbalize back return precautions. Patient/family agree to plan. Copies of imaging and laboratory studies were provided.] Code status:?FULL Please see the full Electronic Medical Record for full details of nursing documentation, medications list, other records of complete past medical history and conditions, vital signs, laboratory studies, and any radiologic study interpretations by radiologists. Portions of this note were completed using Prized dictation software and as a result there may exist minor errors in spelling. I have reviewed elements of past family and social history and agree as included in note. Departure Disposition: 01 HOME / SELF CARE / HOMELESS Impression: Primary Impression: Right foot pain Condition: Improved Discharge Instructions: Foot Pain Additional Instructions: There is no clear explanation for your pain today, however there is no evidence of fracture on the x-ray. If your pain persists, you may need to follow-up with the your primary care provider and obtain an MRI or follow-up with the Orthopedic hearing specialist. Referrals: NO PRIMARY CARE PROVIDER (PCP) Education Educated: Patient Educated regarding: diagnosis, treatment, prognosis, need for follow up Signature Scribe Signature: No scribe Attestation: This note accurately reflects clinical decisions, work performed by myself, DO ASHKAN Arias NICHOLAS M DO Oct 28, 2024 07:29
[2024-10-28 07:53] VITALS: RESP 16
[2024-10-28] MEDS: HYDROcodone/acetaminophen 5mg/325mg tablet PO ONE (07:53)
--- NOTE | 2024-10-28 07:59 | RADIOLOGY REPORT ---
EXAM: DI FOOT, COMPLETE (3VW MIN) HISTORY: FOOT PAIN right COMPARISON: None TECHNIQUE: DI FOOT, COMPLETE (3VW MIN) FINDINGS: BONES: No acute fracture or dislocation. Joint spaces are maintained. SOFT TISSUES: The overlying soft tissues are within normal limits. IMPRESSION: No acute osseous abnormality in the right foot.
== END 2024-10-28 08:46 | disposition home or self-care (01) ==
LOC: ER 07:17
DX: M79.671 Pain in right foot (principal); E78.00 Pure hypercholesterolemia, unspecified; F41.9 Anxiety disorder, unspecified; I10 Essential (primary) hypertension; Z90.49 Acquired absence of other specified parts of digestive tract; Z90.710 Acquired absence of both cervix and uterus; Z79.82 Long term (current) use of aspirin; Z79.899 Other long term (current) drug therapy
CPT/HCPCS: 73630; 99283

== ENCOUNTER 2025-03-14 23:17 | Inpatient (IN) | payer OTHER, MEDICARE ==
[~2025-03-14] VITALS: Ht 160 cm; Wt 67.7 kg
--- NOTE | 2025-03-14 23:32 | ELECTROCARDIOGRAPH REPORT ---
[facility] Test Date: 2025-03-14 Test Time: 23:26:05 Pat Name: MARVIN MCCAIN Department: EMERGENCY ROOM Room: [place] [address] Gender: F Roll Operator: : 1950 Requested By: EMILY LUTHER Order Number: [id number] Reading MD: Dr. Obed Dejesus Measurements Intervals [place] Rate: 66 P: 72 DE: 189 QRS: 32 QRSD: 90 T: 36 QT: 398 QTc: 417 Interpretive Statements Sinus rhythm Multiple ventricular premature complexes Anterior infarct, old Minimal ST depression, inferior leads Electronically Signed On 03-16-2025 9:40:[address] Obed Dejesus Please click the below link to view image of tracing.
[2025-03-14 23:38] LABS: MEAN PLATELET VOLUME 7.9 FL (7.4-10.4); RED CELL DISTRIBUTION WIDTH 13.9 % (11.5-14.5)
--- NOTE | 2025-03-14 23:49 | RADIOLOGY REPORT ---
CHEST RADIOGRAPH Indication: CP Technique: Single frontal view of the chest was obtained COMPARISON: DI CHEST,SINGLE VIEW on DOS: 10/14/24, CHEST,SINGLE VIEW on DOS: 05/14/22, CHEST,SINGLE VIEW on DOS: 05/06/22, CHEST,SINGLE VIEW on DOS: 04/26/22, CHEST,SINGLE VIEW on DOS: 02/28/21 FINDINGS: Lines and Tubes: None Lungs: Clear Pleura: No effusion. No pneumothorax. Cardiomediastinal contours: Unremarkable Bones: Unremarkable IMPRESSION: 1. No acute disease.
[2025-03-14 23:51] LABS: CREATININE 0.67 MG/DL (0.40-0.90); TOTAL CARBON DIOXIDE 27.9 MMOL/L (24-32); eCRCL 61 ML/MIN; eGFR 86 ML/MIN
[2025-03-14 23:58] LABS: PRO BRAIN NATRIURETIC PEPTIDE 31 PG/ML (0-125)
[2025-03-15] VITALS (17 sets, daily range): BP systolic 129–194; BP diastolic 48–76; PULSE 57–88; RESP 10–19; TEMP 96.8–97.9; O2SAT 96–100
--- NOTE | 2025-03-15 00:33 | Physician Documentation ---
History of Present Illness General Chief Complaint: Chest Pain Stated Complaint: CHEST PAIN Time Seen by MD: 23:38 Primary Medical Doctor: DR. DUARTE Mode of Arrival: POV History of Present Illness Initial Comments This is a 74-year-old female who presents for evaluation of substernal and right-sided chest pain radiating to her back that has been present for a month. It is constant. It is not affected by eating, drinking, exercise. It isn't accompanied by shortness a breath. She attempted fixt-kzl-zihqvce medications to treat it without any success. She had contacted Dr. Johnston's office, however they are not able to see her in the time of the manner.did undergo some sort of CT scan recently but it is not a stress test. It has been six years since she has had catheterization. She has not ever had a stress test. And she does not recall last time she had an echo. The pain has been getting gradually worse over the last month. It is now keeping her from sleep. Denies any fever or chills. Was not able to fall asleep so decided to come and get checked out. Denies use of tobacco, alcohol or illicit substances Medication Reconciliation Allergies: Coded Allergies: No Known Allergies (Unverified , 03/14/25) Scheduled Amlodipine Besylate (Amlodipine Besylate), 1 TAB PO DAILY, (Reported) Aspirin (Aspir 81), 1 TAB PO DAILY, (Reported) Losartan/Hydrochlorothiazide (Losartan-Hctz 100-12.5 Mg Tab), 1 TAB PO DAILY, (Reported) [place]-3/Dha/Epa/Fish Oil (Fish Oil 1,000 Mg Ec Softgel), 1 CAP PO DAILY, (Reported) Discontinued Medications Metoprolol Succinate (Metoprolol Succinate), 50 MG PO DAILY Discontinued Reason: Other [Red Yeast Rice/Coq10], 1 TAB PO DAILY, (Reported) Discontinued Reason: Other Past Medical History Past Medical History: *CARDIOVASCULAR*, High Cholesterol, Hypertension, Pneum onia, *PSYCH*, Anxiety Past Surgical History: cholecystectomy, hysterectomy Smoking: Non-Smoker Alcohol Use: None Drug Use: none Lives with: Spouse Lives In: Home Occupation: employed Review of Systems ROS 10 point review of systems was performed and unless noted above in HPI is negative for acute process/complaint. Physical Exam Physical Exam Vital Signs: Temperature: 97.8, Source: Temporal, Heart Rate: 76, Respiratory Rate: 16, BP: 211/69, Pulse Oximetry: 98, Weight: 67.700 Physical Exam GENERAL: Awake, alert, oriented, GCS 15, no apparent distress, non-toxic appearing, answers questions, follows commands appropriately. Examined in bed 2. HEENT: Atraumatic, normocephalic, pupils equal, extraocular muscles intact, sclerae anicteric, mucus membranes moist, oropharynx is clear, no stridor. NECK: supple, full active range of motion, trachea midline, no thyromegaly, no lymphadenopathy, no JVD. CARDIOVASCULAR: regular rate/rhythm, no murmurs/gallops/rubs, Pulses are 2+ in all extremities and symmetric. Capillary refill less than 2 seconds. PULMONARY: Nonlabored, good air movement ,no respiratory distress, speaking in full sentences, clear to auscultation bilaterally, no wheezing, no ronchi, no rales, no accessory muscle use. GASTROINTESTINAL: Soft, non-tender, non-distended, normal active bowel sounds, no organomegaly, no pulsatile masses, no CVA tenderness. NEUROLOGIC: Lucid with normal mental status. Normal facial symmetry. Moves all extremities symmetrically and with purpose. No truncal ataxia. Speech is fluid without evidence of dysarthria or aphasia, no focal deficits appreciated. MUSCULOSKELETAL: There is full range of motion of all extremities. There is no joint pain or joint swelling or joint erythema. There is no muscle pain or tenderness or swelling. EXTREMITIES: warm, well-perfused, no cyanosis, no clubbing, no edema, no acute deformities. Skin: warm, dry, no rashes or lesions, no jaundice, no petechiae orpurpura. No ecchymosis. PSYCHIATRIC: Normal affect, normal insight, normal concentration. Focused exam: [] Progress Results/Orders Results/Orders Orders - EMILY LUTHER DO Chest,Single View (03/14/25 23:31) Monitor (03/14/25 23:31) Saline Lock (03/14/25 23:31) Oxygen (03/14/25 23:31) Hs Troponin I W Calculations (03/15/25 01:31) Hs Troponin I W Calculations (03/15/25 02:31) Cta Chest Abdomen Pelvis (03/15/25 23:58) Completed Orders - EMLIY LUTHER DO Chest,Single View (03/14/25 23:31) Cbc/Diff (03/14/25 23:31) BMP (03/14/25 23:31) PBNP (03/14/25 23:31) Electrocardiogram (03/14/25 23:31) Hs Troponin I W Calculations (03/14/25 23:31) CMP (03/14/25 23:31) Iohexol 350mg/Ml 100ml (Omnipaque 350mg/ (03/15/25 00:13) Cta Chest Abdomen Pelvis (03/15/25 23:58) Lipase (03/14/25 23:25) Vital Signs 03/14/25 03/14/25 03/15/25 03/15/25 23:20 23:44 00:20 01:28 Temp 97.8 Pulse 76 71 70 Resp 16 16 18 13 B/P (MAP) 211/69 197/72 (113) 177/81 (113) Pulse Ox 98 95 98 O2 Flow Rate 0 0 Laboratory Tests Test 03/14/25 23:25 03/15/25 01:31 White Blood Count 9.7 Red Blood Count 4.80 Hemoglobin 13.2 Hematocrit 38.5 Mean Corpuscular Volume 80.2 Mean Corpuscular Hemoglobin 27.6 Mean Corpuscular Hemoglobin Concent 34.4 Red Cell Distribution Width 13.9 Platelet Count 285 Mean Platelet Volume 7.9 Neutrophils (%) (Auto) 51.0 Lymphocytes (%) (Auto) 32.1 Monocytes (%) (Auto) 9.6 Eosinophils (%) (Auto) 6.3 H Basophils (%) (Auto) 1.0 Neutrophils # (Auto) 5.0 Lymphocytes # (Auto) 3.1 Monocytes # (Auto) 0.9 Eosinophils # (Auto) 0.6 Basophils # (Auto) 0.1 CBC Comment Sodium Level 140 Potassium Level 3.1 L Chloride Level 102 Carbon Dioxide Level 27.9 Anion Gap 10 Blood Urea Nitrogen 16 Creatinine 0.67 Estimated GFR/1.73 m2 86 BUN/Creatinine Ratio 23.9 H Glucose Level 120 H Calcium Level 9.2 Total Bilirubin 0.4 Aspartate Amino Transf (AST/SGOT) 21 Alanine Aminotransferase (ALT/SGPT) 30 Alkaline Phosphatase 73 Troponin I High Sensitivity 42 Pro-B-Type Natriuretic Peptide 31 Total Protein 7.5 Albumin 4.2 Globulin 3.3 Albumin/Globulin Ratio 1.3 Lipase 40 Chemistry Comments Heart Score: Heart Score Response (Comments) Value History Moderate Suspicious 1 EKG Repolarization Disturb 1 Age >65 2 Risk Factors 1 or 2 risk factors 1 Troponin Normal limit 0 Total 5 Medical Decision Making Additional information obtaine: old records, family Findings Facility Status: ED Holds, RME process The plan was discussed with the patient, who demonstrates clear understanding of the plan and is in agreement with the plan unless otherwise noted in the chart. All questions have been answered, all concerns were addressed unless otherwise documented. I was available throughout their ED stay for frequent reassessment and questions. Differential Diagnoses (considered and possible or likely): [Differential diagnosis considered includes chest wall pain, pleurisy, pneumonia, pulmonary embolus, GERD, esophagitis, gastritis, anxiety, stress reaction, costochondritis, acute coronary syndrome, aortic dissection, pericarditis, myocarditis, or pneumothorax.] ??Differential Diagnoses (considered and unlikely, not requiring evaluation currently): [See above] MDM Data Please see [facility] for the following: Independent Historians and external Records Review. 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 All vitals signs/haemodynamics, ordered tests were independently reviewed and interpreted by myself. Nursing triage complaint and vitals reviewed, additional nursing notes were reviewed as available and I agree unless otherwise noted or documented in contradiction in the chart Vital Signs: Independently reviewed Labs: Independently interpreted Imaging: Independently interpreted Old Medical Records: Independently reviewed, see HPI for relevant summary and information Pulse Oximetry: [99%] interpreted as [normal on room air] by me [Bill Distributor: [Regular Rate, Regular rhythm, no ectopy, NSR] reviewed and interpreted by me] Additionally notably showing: [Hemodynamics reviewed. The patient isn't febrile, not tachycardic, no evidence of hypotension respiratory distress. She is cover hypotensive but did not improve approximately 20% of her blood pressure systolic reading from presentation during the emergency department. CBC normal without evidence of leukocytosis, anemia, normal platelets, no neutrophilic predominance. Metabolic panel notable for mild hypokalemia, dehydration. Troponin is negative. BNP is normal. Lipase is known. CT angiography of the chest, abdomen and pelvis was obtained showing no acute findings. On my independent interpretation of CT angiography of the chest, abdomen and pelvis with a aortic face, there is no aortic dissection, no central pulmonary ambulance. Breast implants noted. Multiple liver cysts noted. Patient is status post hysterectomy.] Tests considered but not ordered include: [Echo and stress test can be done on an inpatient basis] Social Determinants of Health Impact: Patient was evaluated in [facility] [place] access to healthcare due to below par ratio of patient to medical providers. [] Comorbid Conditions Impacting Present Evaluation and Care/Treatment: [Hypertension] Management Discussions with other Healthcare Providers: [Hospitalist regarding admission] Treatment and Disposition Medication Management (Given or considered): []. See EMR for details Consideration for Hospitalization/Escalation/Deescalation of Care: Admission for observation is necessary for further workup of her chest pain ?ED Course:?[No clinical deterioration] ?Shared decision making:?[] Code status:?FULL Please see the full Electronic Medical Record for full details of nursing documentation, medications list, other records of complete past medical history and conditions, vital signs, laboratory studies, and any radiologic study interpretations by radiologists. Portions of this note were completed using [employer] dictation software and as a result there may exist minor errors in spelling. I have reviewed elements of past family and social history and agree as included in note. Differential Diagnosis See body of main note for differential diagnosis Departure Disposition: ADMITTED INPATIENT Admitted to Inpatient Unit: to hospitalist Impression: Primary Impression: Acute chest pain Additional Impressions: Lung cyst Hepatic cyst Condition: Stable Referrals: NO PRIMARY CARE PROVIDER (PCP) Signature Scribe Signature: No scribe Attestation: Date: Mar 15, 2025 Time: 00:33 This note accurately reflects clinical decisions, work performed by myself, DO ASHKAN Arias NICHOLAS M DO Mar 15, 2025 00:33
[2025-03-15] MEDS ORDERED: AMLO5TAB16 PO (00:51)
[2025-03-15] MEDS ORDERED: LOSA1TAB41 PO (00:51)
[2025-03-15] MEDS ORDERED: OMEG-166 PO (00:51)
--- NOTE | 2025-03-15 01:00 | RADIOLOGY REPORT ---
Exam: CT CTA CHEST ABDOMEN PELVIS W/ IV CONTRAST History: Severe chest pain ==> midline back Comparison Study: DI CHEST,SINGLE VIEW on DOS: 03/14/25, DI CHEST,SINGLE VIEW on DOS: 10/14/24, CHEST,SINGLE VIEW on DOS: 05/14/22, CTA CHEST on DOS: 05/07/22, CHEST,SINGLE VIEW on DOS: 05/06/22 Technique: Multidetector spiral CT of the chest, abdomen and pelvis was performed from lower neck to pubic symphysis. Intravenous contrast was administered during this examination. Arterial imaging was obtained. Axial, coronal and sagittal multiplanar reformats were performed by the technologist on a separate workstation. MIP reformatted images were obtained and evaluated. Radiation Dose : 1. Chest/Abdomen/Pelvis: CTDIvol 15.9 mGy, DLP 1139.5 mGy*cm. Contrast: 100 cc Omnipaque 350. Findings: Lower neck: Normal thyroid. Lungs: No focal consolidation, pleural effusion or pneumothorax. Heart/Vascular Structures: Normal heart size. No pericardial effusion. Lymph Nodes: No adenopathy Pleura: Central airways patent. Diffuse scattered thin-walled lung cysts. No focal airspace disease. No suspect pulmonary nodules. Liver: Hepatic cysts. Gallbladder and Biliary Tree: Unremarkable Spleen: Unremarkable Pancreas: The pancreas is normal in appearance without focal lesions or abnormal enhancement. Adrenal Glands: Unremarkable Kidneys: Kidneys demonstrate normal symmetric enhancement without focal lesions, calculi or hydronephrosis. Bladder: Unremarkable Bowel: The stomach is grossly normal in appearance. Small bowel and colon are normal in caliber and distribution. The appendix is not visualized; however, no secondary findings of acute appendicitis identified. Ascites: Absent Lymphadenopathy: No mesenteric, retroperitoneal or periportal lymphadenopathy. Abdominal Wall and Mesentery: Unremarkable. Vasculature: The visualized abdominal aorta is normal in size and caliber. Abdominal and pelvic vessels demonstrate normal enhancement. Pelvic Organs: Unremarkable Musculoskeletal: No aggressive focal bony lesions, acute fractures or dislocation. Bilateral breast implants. IMPRESSION: No acute findings involving the chest, abdomen or pelvis.
[2025-03-15] MEDS ORDERED: magnesium hydroxide 30ml (MOM) UD suspension PO PRN (02:10)
[2025-03-15] MEDS ORDERED: magnesium Cl slow-release 64mg tablet PO PRN (02:10)
[2025-03-15] MEDS ORDERED: magnesium sulf-water 2g/50mL 50 ML IV PRN (02:10)
[2025-03-15] MEDS ORDERED: ondansetron/PF 4mg/2ml inj IV PRN (02:10)
[2025-03-15] MEDS ORDERED: mag hydrox/Alum hydrox/simeth 30ml oral suspension PO PRN (02:10)
[2025-03-15] MEDS ORDERED: magnesium sulf-water 4G/100mL 100 ML IV PRN (02:10)
[2025-03-15] MEDS ORDERED: potassium Cl 20 mEq SR tablet PO PRN (02:10)
[2025-03-15] MEDS ORDERED: potassium Cl 40MEQ/1/2NS 520ml 520 ML IV PRN (02:10)
[2025-03-15] MEDS: normal saline 1000ml 1,000 ML IV SCH (02:28)
--- NOTE | 2025-03-15 03:20 | HISTORY AND PHYSICAL-Residence ---
History & Physical Providers to CC Resident Creating Document: SADIE VALDOVINOS, RES ~ History of Present Illness Primary Medical Doctor: DR. DUARTE Reason for Admit\Complaint: Chest pain History of Present Illness A 74-year-old female with a cardiac history of Takotsubo cardiomyopathy (broken heart syndrome) diagnosed in 2014, hypertension, dyslipidemia, and prior echo demonstrating mild to moderate concentric hypertrophy with hyperdynamic LV function. She presented today with substernal right-sided chest pain radiating to the right shoulder blade, associated with recent onset of constant heartburn since the past 1 month. The pain has been constant with no aggravating or relieving factors. She describes the pain intensity as 7/10 and notes that it does not radiate to the left or right arm. She has tried one dose of acetaminophen today with no relief. She claims of chest pain worsening when taking a deep breath. She reports intermittent shortness of breath, but denies syncope, palpitations, or recent exertional symptoms. She follows with Dr. Johnston outpatient, last seen approximately a year ago. She does not recall whether she had any recent echocardiogram or other cardiac testing. Her home medications include losartan, amlodipine, and aspirin. She denies recent use of earb-qhw-blcegwl antacids, NSAIDs or other cardiac medications. Patient has no recent history of travel, exposure to any sick contacts. Vital signs on admission were notable for blood pressure 173/84 mmHg, with otherwise stable EKG: Minimal ST depression in lead aVF, few ventricular premature complexes. Cardiac enzymes: Troponin negative. Pro-BNP: Negative. CT angiography: Negative for acute aortic pathology Her 2022 echocardiogram showed: Small LV with mild-moderate concentric hypertrophy Hyperdynamic systolic function, LVEF >70% Resting LVOT gradient of 69 mmHg Mildly hypokinetic apical septum and mid inferoseptum Mild-moderate mitral regurgitation and trace pericardial effusion Overall, no hemodynamic compromise noted. She has a history of NSTEMI in 2022, interpreted as type II OH secondary to cardiomyopathy, and prior coronary angiography in 2014 showed normal coronary arteries with apical hypokinesis consistent with Takotsubo syndrome. She denies fevers, cough, recent viral illness (except prior COVID-19 in 2022), gastrointestinal bleeding, or neurologic symptoms. Current labs are normal. Allergies: Coded Allergies: No Known Allergies (Unverified , 03/14/25) Home Medications Home Medications Active Reported Fish Oil 1,000 Mg Ec Softgel ([place]-3/Dha/Epa/Fish Oil) 300 Mg-1,000 Mg Capsule. 1 Cap PO DAILY 30 Days Amlodipine Besylate 5 Mg Tablet 1 Tab PO DAILY Losartan-Hctz 100-12.5 Mg Tab (Losartan/Hydrochlorothiazide) 100 Mg-12.5 Mg Tablet 1 Tab PO DAILY Aspir 81 (Aspirin) 81 Mg Tablet. 1 Tab PO DAILY Past Medical History Past Medical History Code stroke cardiomyopathy Hypertension Dyslipidemia Concentric hypertrophy Endometriosis Past Surgical History Surgical History Comment Hysterectomy for endometriosis Breast implant surgery many years ago Surgery for deviated nasal septum Past Social History Social History Comment Denied smoking, alcohol, illicit use of drugs Smoking: Non-Smoker Alcohol Use: None Drug Use: None Lives with: Spouse Lives In: Home Occupation: employed ROS ROS Reviewed in full. All negative except for pertinent positive HPI. Exam Vitals: Vital Signs Date Time Temp Pulse Resp B/P (MAP) Pulse Ox O2 Delivery O2 Flow Rate FiO2 03/15/25 02:31 68 14 156/66 (96) 97 0 03/14/25 23:20 97.8 General: Awake , alert, and oriented x4, resting comfortably in the bed, in no acute distress HEENT: Atraumatic, normocephalic, EOMI, anicteric sclera ; pink conjunctiva Neck: Trachea midline. Supple, full range of motion, no JVD Cardiac: Regular rhythm, regular rate with no murmurs all over the precordium. Respiratory: Equal breath sounds bilaterally, no tachypnea, no wheezing ,rub or rales, Chest wall is symmetric and without deformity. Gastrointestinal: Abdomen symmetric, non-distended, soft, non-tender, normal bowel sounds x4 quadrant, normoactive, no hepatosplenomegaly Musculoskeletal: No pedal edema, no cyanosis, peripheral pulses felt Neurological: Mental status exam: alert and consciousness, orientation, memory, speech - Cranial nerve test: Cranial nerves 2-12 intact - Motor system: Nutrition, Tone 3+, Power 5/5, no involuntary movements - Sensory system: Intact - Reflex testing: Biceps, triceps and knee reflexes 2+ - Cerebellar: Normal Skin: Warm and dry Diagnostic Data Last Recorded Lab Results: 03/14/25232403/14/252324 Advance Care Planning Advanced Care plannin - 30 Minutes Additional Plan 1. Atypical chest pain- Right Substernal Chest Pain / GERD Cardiac versus noncardiac chest pain ACS- less likely Heart score not calculated, as chest pain is atypical, May over estimated risk Likely non-cardiac etiology, possible gastroesophageal reflux versus musculoskeletal pain Negative troponins Negative CTA Minimal EKG changes Non-exertional, positional, right-sided location Pleuritis unlikely SP in his not pleuritic, not positional, no friction rub present Plan: Initiate GERD therapy (pantoprazole 40 mg IV daily) Avoid NSAIDs, spicy foods Provide PRN morphine for pain relief Educated patient on red flag symptoms (radiation to arm/jaw, syncope, dyspnea) Ordered Lexiscan, recommended by recording studio internship 2. Cardiomyopathy / Hypertrophic LV with Hyperdynamic Function Likely hypertrophic cardiomyopathy with residual effects of Takotsubo cardiomyopathy, LVOT obstruction present. Plan: Continue losartan and amlodipine after med rec Ordered beta-krystal metoprolol succinate 25 mg p.o.; target HR <60, hold if HR <40 or SBP <90 mmHg Avoid diuretics unless volume overload present Continue adequate hydration Repeat echocardiogram ordered 3. History of NSTEMI / Type II OH No acute OH on current presentation; prior NSTEMI likely secondary to cardiomyopathy Plan: Continue aspirin 81 mg daily Optimize blood pressure medications No acute intervention needed 4. Mitral Regurgitation / Trace Pericardial Effusion As per Prior echo in 2022 Mild-moderate mitral regurgitation, trace circumferential pericardial effusion without hemodynamic compromise. Plan: Monitor for worsening MR or effusion Repeat echocardiography pending 5. Hypertension / Dyslipidemia BP elevated on admission. Plan: Continue losartan and amlodipine One dose of hydralazine 10 mg IV once Lipid panel ordered Ordered Atorvastatin 40 mg PO daily DC patient on statins if lipid panel is deranged Patient denied statins initially, night recording studio internship, Dr Noble explained to the patient regarding the benefits of statins. She agreed to try for a few months. 6. History of COVID pneumoniae in 2022 Currently stable, lungs clear Disposition Cardiology follow-up with Dr. Johnston for ongoing HCM management GI follow-up if symptoms are persistent and cardiac causes ruled out Code Status: I spent a total of 17 minutes on reviewing various resuscitative measures with the patient at the time of admission. The patient has decided on a full code status. DVT Prophylaxis: Heparin S Analgesia/ Sedation: Morphine Line/tubes: P IV GI Prophylaxis: Protonix Nutrition: Heart healthy diet PT: Ordered Prognosis: Guarded Sadie Valdovinos MD Internal Medicine Resident, PGY-2 Patient was seen and discussed with the resident team I agree with the assessment and plan as documented thank you Date of Service: Mar 15, 2025 Billing Provider: BLAS NOBLE MD, GAURAV, RES Mar 15, 2025 03:20 BLAS NOBLE MD Mar 15, 2025 09:26
[2025-03-15 03:23] LABS: CHOL/HDL RATIO 4.2 (0.00-4.99); LDL CHOLESTEROL 159 MG/DL (50-100)
[2025-03-15] MEDS: hydrALAZINE 20mg/ml inj. IV ONE (03:54)
[2025-03-15] MEDS: potassium Cl 20 mEq SR tablet PO PRN (04:44)
[2025-03-15] MEDS ORDERED: aminophylline 250mg/10ml inj. IV PRN (07:05)
[2025-03-15] MEDS ORDERED: metoprolol tartrate 1mg/ml inj IV PRN (07:05)
[2025-03-15] MEDS: docusate sod 100mg capsule PO SCH (07:30)
[2025-03-15] MEDS: OMEGA-3/DHA/EPA/FISH OIL 1 EACH CAPSULE.DR PO SCH (07:31)
[2025-03-15] MEDS: heparin, porcine 5000 units/ml vial SQ SCH (07:31)
[2025-03-15] MEDS: metoprolol succinate 25mg (24-HOUR) SR. Tablet PO SCH (07:32)
[2025-03-15] MEDS ORDERED: non-formulary drug (Losartan/Hydrochlorothiazide (Losartan-Hctz 100-12.5 Mg Tab) 1 TAB) PO SCH (08:00)
[2025-03-15] MEDS: K and/or MAG REPLACEMENT MC SCH (08:26)
[2025-03-15] MEDS: PERFLUTREN PROTEIN-A MICROSPHR (Optison) 0.22 MG/ML 3ML VIAL IV ONE (10:00)
[2025-03-15] MEDS: regadenoson 0.4mg/5ml syringe IV PRN (11:56)
--- NOTE | 2025-03-15 14:49 | RADIOLOGY REPORT ---
Procedure: NM NM RADHA SCAN Exam Date: 03/15/2025 10:26 AM Reason for study/Clinical History: chest pain Comparison Study: None Myocardial Perfusion Study with SPECT Technique: The patient received an intravenous injection of 8.7 mCi of technetium 99m Myoview while at rest. After a short delay, SPECT tomographic images of the heart were obtained. The patient then went to the stress lab and received an intravenous infusion of Lexiscan utilizing standard protocol. 34.9 mCi of technetium-99m Myoview was injected intravenously following Lexiscan infusion also per standard protocol. After a short delay, gated SPECT tomographic images of the heart were acquired and processed into the standard views. Findings: Gated portion of the study shows normal wall motion and myocardial thickening. The left ventricular ejection fraction is calculated at 72%. (normal greater than 55%) Impression: 1. Normal left ventricular size, wall motion, and function, without evidence of infarction or of myocardium at ischemic risk. The left ventricular ejection fraction is calculated at 72%.
[2025-03-15] MEDS: hydrALAZINE 20mg/ml inj. IV PRN (15:59)
--- NOTE | 2025-03-15 17:12 | CARDIOLOGY REPORT ---
APPROVED REPORT EXAM: Comprehensive 2D, Doppler, and color-flow Echocardiogram. Patient Location: [facility] Heart Rate: 61 bpm Rhythm: NSR Indications ABNORMAL EKG SILK SCREEN PROCESSOR: Jake VASQUES MD PRIOR ECHOCARDIOGRAM: 05/06/2022 [facility] LVEF is 70%; SMALL lv SIZE; hyperdynamic LV; m/mod CLVH; resting lv gradient 69 mmHg; m/mod MRtr TR; tr/m p Echo Enhancing Agent Indication: PERICARDIAL EFFUSION 2D Dimensions RVDd 2.9 cm IVSd 1.2 (0.7-1.1cm) LVDd 3.9 cm PWd 1.2 (0.7-1.1cm) IVSs 1.5 (0.8-1.2cm) LVDs 2.6 (2.5-4.0cm) PWs 1.5 (0.8-1.2cm) LVOT Diameter 1.96 (1.8-2.4cm) LVEF(%) 61.4 (>50%) FS (%) 32.4 % SV 39.4 ml CO 2.4 L/min M-Mode Dimensions Left Atrium(MM) 3.81 (2.5-4.0cm) Aortic Root 2.85 (2.2-3.7cm) Aortic Valve AoV Peak Andrea. 125.9 cm/s AoV VTI 34.4 cm AO Peak GR. 6.3 mmHg AO Mean GR. 3 mmHg LVOT VTI 26.17 cm LVOT Peak Andrea. 130.9 cm/s KINGSLEY (VTI) 2.30 cm2 AV DI 0.76 % Mitral Valve MV E Velocity 90.0 cm/s MV Peak Gr. 4 mmHg MV A Velocity 85.2 cm/s MV PHT 64 ms E/A Ratio 1.1 MVA (PHT) 3.44 cm2 MV VMax 102.5 cm/s LEFT VENTRICLE Normal LV size and function. Mild concentric hypertrophy. LVEF is 60-65%. RIGHT VENTRICLE RV is normal size and function. ATRIA The left atrium size is normal. The right atrium size is normal. AORTIC VALVE The aortic valve is normal in structure. No insufficency. MITRAL VALVE Mild mitral annular calcification without stenosis. Mild regurgitation. TRICUSPID VALVE TV appears structurally normal without regurgitation. PULMONIC VALVE Pulmonic valve is not well visualized. GREAT VESSELS The aortic root is normal in size. The ascending aorta is normal in size. The IVC is normal in size and collapses >50% with inspiration. PERICARDIUM Normal pericardium. No effusion. Other Information Study Quality: Adequate Conclusion Normal LV size and function. Mild concentric hypertrophy. LVEF is 60-65%. RV is normal size and function. The left atrium size is normal. The aortic valve is normal in structure. No insufficency. Mild mitral annular calcification without stenosis. Mild regurgitation. TV appears structurally normal without regurgitation. The aortic root is normal in size. The ascending aorta is normal in size. Normal pericardium. No effusion.
[2025-03-15] MEDS ORDERED: hydrALAZINE 20mg/ml inj. IV SCH (20:00)
[2025-03-16 02:00] VITALS: BP 129/67; PULSE 61; RESP 13; TEMP 97.8; O2SAT 97
[2025-03-16 06:00] VITALS: BP 158/57; PULSE 57; RESP 14; TEMP 97.5; O2SAT 97
[2025-03-16 06:58] VITALS: BP_SYST 158; PULSE 60
[2025-03-16 07:21] LABS: MEAN PLATELET VOLUME 8.4 FL (7.4-10.4); RED CELL DISTRIBUTION WIDTH 14.0 % (11.5-14.5)
[2025-03-16 07:54] LABS: CREATININE 0.79 MG/DL (0.40-0.90); TOTAL CARBON DIOXIDE 23.8 MMOL/L (24-32); eCRCL 52 ML/MIN; eGFR 71 ML/MIN
[2025-03-16 08:00] VITALS: RESP 13; O2SAT 97
[2025-03-16] MEDS ORDERED: ATOR20TA66 PO (12:15)
--- NOTE | 2025-03-16 18:09 | DISCHARGE SUMMARY-Residence ---
Discharge Summary Providers to CC Resident Creating Document: RUTHANN MURRAY, RES ~ Discharge Summary Admission Diagnosis: [facility] DATE OF ADMISSION: 03/15/2025 DATE OF DISCHARGE: 03/16/2025 Labs at the time of discharge WBCs 7.7 Hemoglobin 11.4 Sodium 143 Potassium 3.7 Creatinine 0.79 LDL 159 Total cholesterol 229 Lexiscan on 03/15/2025 Normal left ventricular size, wall motion, and function, without evidence of infarction or of myocardium at ischemic risk.The left ventricular ejection fraction is calculated at 72%. Echocardiogram on 03/15/2025 Normal LV size and function. Mild concentric hypertrophy. LVEF is 60-65%. RV is normal size and function. The left atrium size is normal. The aortic valve is normal in structure. No insufficency. Mild mitral annular calcification without stenosis. Mild regurgitation. TV appears structurally normal without regurgitation. The aortic root is normal in size. The ascending aorta is normal in size. Normal pericardium. No effusion. Chest, abdomen, pelvis CTA No acute findings involving the chest, abdomen or pelvis. Discharge Diagnosis\Comment: Noncardiac chest pain ACS ruled out History of Takotsubo's cardiomyopathy Hypertension Operations\Procedures: None Consultants: None Complications: None Condition on DC: Stable New Medications: Atorvastatin Calcium (Atorvastatin Calcium) 20 Mg Tablet 40 MG PO DAILY for 30 Days, #60 TAB Continued Medications: Amlodipine Besylate (Amlodipine Besylate) 5 Mg Tablet 1 TAB PO DAILY Aspirin (Aspir 81) 81 Mg Tablet.dr 1 TAB PO DAILY Losartan/Hydrochlorothiazide (Losartan-Hctz 100-12.5 Mg Tab) 100 Mg-12.5 Mg Tablet 1 TAB PO DAILY Lawrence-3/Dha/Epa/Fish Oil (Fish Oil 1,000 Mg Ec Softgel) 300 Mg-1,000 Mg Capsule.dr 1 CAP PO DAILY for 30 Days, #30 CAP 0 Refills Discharge Summary: This is a 74-year-old female with history of takotsubo cardiomyopathy, diagnosed in 2014, hypotension, dyslipidemia presented with substernal right-sided chest pain, radiating to right shoulder blade and back. She has been having a constant pain for the last three week without any aggravating or relieving factors. She also reports intermittent shortness of breadth. She follows up with Dr. Yoo in the outpatient. She I had a cardiac catheterization done in 2014 which showed normal coronary arteries with a packet hypokinesia consistent with a takotsubo syndrome. Patient has been admitted for possible ACS. Troponins negative, EKG did not show any ST-T changes. Lexiscan was done which showed no reversible defects. Considering which has been radiating to back, CTA was done, ruled out aortic dissection. The chest pain is likely from muscle sprain from exercise. She has a history of takotsubo cardiomyopathy, echocardiogram was done which showed concentric hypertrophy with an ejection fraction of 60-65%. Continued patient's home medication losartan and amlodipine for hypertension. Patient's labs showed hyperlipidemia, initiated on atorvastatin 40 mg. Patient initially denied taking atorvastatin but on further explaining the risks and benefits she agreed to take it. Patient recovered earlier than expected Patient is stable to be discharged home At the time of discharge she had the following physical examination findings Awake , alert, and oriented x4, resting comfortably in the bed, in no acute distress HEENT: Atraumatic, normocephalic, EOMI, anicteric sclera ; pink conjunctiva Neck: Trachea midline. Supple, full range of motion, no JVD Cardiac: Regular rhythm, regular rate with no murmurs all over the precordium. Respiratory: Equal breath sounds bilaterally, no tachypnea, no wheezing ,rub or rales, Chest wall is symmetric and without deformity. Gastrointestinal: Abdomen symmetric, non-distended, soft, non-tender, normal bowel sounds x4 quadrant, normoactive, no hepatosplenomegaly Musculoskeletal: No pedal edema, no cyanosis, peripheral pulses felt Neurological: Mental status exam: alert and consciousness, orientation, memory, speech - Cranial nerve test: Cranial nerves 2-12 intact - Motor system: Nutrition, Tone 3+, Power 5/5, no involuntary movements - Sensory system: Intact - Reflex testing: Biceps, triceps and knee reflexes 2+ - Cerebellar: Normal Skin: Warm and dry Discharge medications Atorvastatin 40 mg Amlodipine 5 mg Aspirin 81 mg Losartan-hydrochlorothiazide, 100-12.5 mg Discharge instructions Follow up with PCP in 2 weeks. Follow uip with cardiology. Continue to take aspirin, atorvastatin. Call 911 or return to ER in case of chest pain, SOB, palpitations. *Problems/Diagnosis: (1) Chest wall pain Status: Acute Total Time Spent on D/C: > 30 Minutes Date of Service: Mar 16, 2025 Billing Provider: GUALBERTO MAYNARD MD Common Visit Codes: 45198-NPU/OBS DISCH DAY >30min RUTHANN MURRAY, RES Mar 16, 2025 18:06 GUALBERTO MAYNARD MD Mar 19, 2025 08:44
== END 2025-03-16 13:33 | disposition home or self-care (01) | DRG 313 ==
LOC: ER 23:18 → ED HOLD 03-15 02:08 → PCU 3S 03-15 03:07
PROVIDERS: ADMIT Internal Medicine; ATTEND Internal Medicine
PROC: BW251ZZ Computerized Tomography (CT Scan) of Chest, Abdomen and Pelvis using Low Osmolar Contrast (ICD-10-PCS; principal; 2025-03-15)
PROC: 4A02XM4 Measurement of Cardiac Total Activity, External Approach (ICD-10-PCS; 2025-03-15)
PROC: 3E033HZ Introduction of Radioactive Substance into Peripheral Vein, Percutaneous Approach (ICD-10-PCS; 2025-03-15)
DX: R07.89 Other chest pain (principal); I31.39 Other pericardial effusion (noninflammatory); K76.89 Other specified diseases of liver; I10 Essential (primary) hypertension; I34.0 Nonrheumatic mitral (valve) insufficiency; E78.00 Pure hypercholesterolemia, unspecified; F41.9 Anxiety disorder, unspecified; Z90.710 Acquired absence of both cervix and uterus; J98.4 Other disorders of lung; Z90.49 Acquired absence of other specified parts of digestive tract
CPT/HCPCS: 36415; 71045; 71275; 74174; 78452; 80053; 80061; 83036; 83690; 83735; 83880; 84132; 84484; 85025; 87081; 93005; 93017; 93306; 99285; A9500; G0378; J0360; J1644; J2270; J2470; J2785; J7030; Q9967